=== PATIENT | female | born 1960 ===

== ENCOUNTER 2020-07-21 19:40 | Outpatient (REF) | payer OTHER, SELFPAY ==
[2020-07-21 19:08] LABS: ALT 17 U/L (14-59); AST 11 U/L (15-37); Albumin 3.7 g/dL (3.4-5.0); Alkaline Phosphatase 76 U/L (46-116); BUN 22 mg/dL (7-18); Bilirubin, Total 0.4 mg/dL (0.2-1.0); C-Reactive Protein 0.11 mg/dL (0.0-0.3); CREATININE 1.04 mg/dL (0.55-1.02); Calculated LDL 195 mg/dL (<100); Chloride 109 mmol/L (98-107); Cholesterol 275 mg/dL (<200); Estimated GFR 54.24 (mL/min/1.73m2); Glucose 85 mg/dL (74-106); HDL Cholesterol 57 mg/dL (40-60); Potassium 4.3 mmol/L (3.5-5.1); Sodium 140 mmol/L (136-145); Total Protein 6.8 g/dL (6.4-8.2); Triglyceride 116 mg/dL (<150)
[2020-07-21 19:55] LABS: ESR 13 mm/hr (0-30)
[2020-07-22 04:41] LABS: Vitamin D 25 Total 39.1 ng/ml (30-100)
[2020-07-22 16:52] LABS: Rheumatoid Factor <8.6 IU/mL (<12.0)
== END 2020-07-21 20:00 ==
LOC: NCHCN 19:40
PROVIDERS: Visit Provider Nurse Practitioner
DX: M25.50 Pain in unspecified joint (principal); Z13.21 Encounter for screening for nutritional disorder; F33.1 Major depressive disorder, recurrent, moderate
CPT/HCPCS: 80053; 80061; 82306; 85652; 86140; 86431

== ENCOUNTER 2020-10-27 15:48 | Outpatient (REF) | payer OTHER, SELFPAY ==
[2020-10-30 09:16] LABS: COVID-19 RT-PCR UVMMC Result Negative (Negative)
== END 2020-10-27 16:08 ==
LOC: NCHCN 15:48
PROVIDERS: Visit Provider Physician Assistant
DX: Z20.828 Contact with and (suspected) exposure to other viral communicable diseases (principal)
CPT/HCPCS: U0003

== ENCOUNTER 2020-12-28 14:28 | Outpatient (REF) | payer OTHER, SELFPAY ==
--- NOTE | 2020-12-28 14:00 | PAPFT_PTH ---
PATIENT: PHILIPPE BONILLA LOC: [facility]#:[id number] AGE/SX: 60/F ROOM: RE12/28/[address]: Avel Bryant : 1960 BED: DIS: 12/28/2020 SPEC #: [id number] RECD: 12/29/20 13:03 STATUS: CELESTINA REJatinder #: [id number] RENETTA: 12/28/20 14:[address]: Avel Bryant DEPT: [facility] Cytology RECD BY: Bettina Noonan Tissues: 1 - CX/ENDOCX FOR PAP SMEARS Procedures: PAP THIN PREP/[facility] Screening HPV DNA PROBE Comments: [id number]
== END 2020-12-28 14:29 | disposition home or self-care (01) ==
LOC: NCHCN 14:28
PROVIDERS: Visit Provider Physician Assistant
DX: Z12.4 Encounter for screening for malignant neoplasm of cervix (principal); Z11.51 Encounter for screening for human papillomavirus (HPV); Z00.00 Encounter for general adult medical examination without abnormal findings
CPT/HCPCS: 88142; 87624

== ENCOUNTER → 2021-02-03 13:50 | Outpatient (BNVA) | payer OTHER, SELFPAY | PROVIDERS: Referring Provider Student in an Organized Health Care Education/Training Program; Visit Provider Nurse Practitioner Adult Health | DX: M79.641 Pain in right hand (principal); M79.642 Pain in left hand; J44.9 Chronic obstructive pulmonary disease, unspecified; F17.210 Nicotine dependence, cigarettes, uncomplicated | CPT/HCPCS: 95909; 99203; 99213 ==